=== PATIENT | male | born 1985 | race African-American/Black ===

== ENCOUNTER 2025-01-04 11:39 | Inpatient (IN) | payer OTHER ==
[2025-01-04 12:15] VITALS: BMI 19.8
[2025-01-04] MEDS ORDERED: IBUPROFEN 600 MG TABLET (FP) PO PRN (12:29)
[2025-01-04] MEDS ORDERED: MAGNESIUM HYDROX 2400MG/30ML ORAL SUSPENSION 30 ML CUP PO PRN (12:29)
[2025-01-04] MEDS ORDERED: ONDANSETRON *ODT* 4 MG TABLET SL PRN (12:29)
[2025-01-04] MEDS ORDERED: NICOTINE POLACRILEX 2 MG LOZENGE BC PRN (12:29)
[2025-01-04] MEDS ORDERED: NALOXONE (NARCAN) HCL 4 MG/0.1 ML SPRAY NS PRN (12:29)
[2025-01-04] MEDS ORDERED: NICOTINE POLACRILEX 2 MG GUM BUC PRN (12:29)
[2025-01-04] MEDS ORDERED: POLYETHYLENE GLYCOL (HEALTHYLAX) 3350 17 GM PACKET PO PRN (12:29)
[2025-01-04] MEDS ORDERED: LOPERAMIDE HCL 2 MG CAPSULE PO PRN (12:29)
[2025-01-04] MEDS ORDERED: IBUPROFEN 400 MG TABLET (FP) PO PRN (12:29)
[2025-01-04] MEDS ORDERED: guaiFENesin 600 MG TABLET.ER (FP) PO PRN (12:29)
[2025-01-04] MEDS ORDERED: MAG HYDROX/AL HYDROX/SIMETH 30 ML UNIT-DOSE CUP PO PRN (12:29)
[2025-01-04] MEDS ORDERED: BISMUTH SUBSALICYLATE 262 MG/15 ML BTL PO PRN (12:29)
[2025-01-04] MEDS ORDERED: BENZOCAINE/MENTHOL (CHLORASEPTIC ) LOZENGE MM PRN (12:29)
[2025-01-04] MEDS ORDERED: BENZONATATE 200 MG CAPSULE PO PRN (12:29)
[2025-01-04] MEDS ORDERED: ACETAMINOPHEN 325 MG TABLET (FP) PO PRN (12:29)
[2025-01-04] MEDS ORDERED: DICYCLOMINE HCL 10 MG CAPSULE PO PRN (12:29)
[2025-01-04] MEDS: hydrOXYzine PAMOATE 25 MG CAPSULE (FP) PO PRN (19:30)
[2025-01-04] MEDS: METHOCARBAMOL 500 MG TABLET PO PRN (19:30)
[2025-01-04] MEDS: MELATONIN 5 MG TABLETS PO SCH (22:07)
[2025-01-04] MEDS: THIAMINE 100 MG TABLET PO SCH (22:07)
[2025-01-05] MEDS: methaDONE HCL 10 MG TABLET PO ONE (08:57)
[2025-01-05] MEDS ORDERED: methaDONE HCL 10 MG TABLET PO PRN (10:30)
[2025-01-05] MEDS: cloNIDine HCL 0.1 MG TABLET PO SCH (10:35)
[2025-01-05] MEDS: PRENATAL VITAMINS W/ FOLIC ACID TABLET (FP) PO SCH (10:36)
[2025-01-05 12:27] LABS: HEMATOCRIT 43.6 % (35.4-49); HEMOGLOBIN 14.5 GM/dL (11.7-16.9); MCH 27.9 pg (25.7-33.7); MCHC 33.2 g/dl (32.0-35.9); PLATELET COUNT 275 10^3/uL (134-434); RDW 13.8 % (11.9-15.9); WHITE BLOOD COUNT 6.3 K/mm3 (4.0-10.0)
[2025-01-05 12:29] LABS: POTASSIUM 4.1 mmol/L (3.5-5.1)
[2025-01-05 12:36] LABS: CALCIUM 9.5 mg/dL (8.5-10.1)
[2025-01-05 12:37] LABS: ALBUMIN 3.5 g/dl (3.4-5.0); BLOOD UREA NITROGEN 19.9 mg/dL (7-18)
[2025-01-05 12:40] LABS: CREATININE 0.9 mg/dL (0.55-1.3)
[2025-01-05 12:41] LABS: BILIRUBIN,TOTAL 0.6 mg/dL (0.2-1); TOT PROT 8.3 g/dl (6.4-8.2)
[2025-01-06] MEDS: methaDONE 40 MG, methaDONE 10 MG PO ONE (09:07)
[2025-01-06] MEDS: methaDONE HCL 40 MG DISPERSABLE TABLET PO ONE (12:10)
[2025-01-07] MEDS ORDERED: cloNIDine HCL 0.1 MG TABLET PO PRN
[2025-01-07] MEDS: methaDONE 40 MG, methaDONE 20 MG PO ONE (09:21)
[2025-01-07] MEDS ORDERED: methaDONE 40 MG, methaDONE 20 MG PO ONE (10:00)
[2025-01-07] MEDS ORDERED: methaDONE HCL 40 MG DISPERSABLE TABLET PO ONE ×2 (10:00→11:16)
[2025-01-08] MEDS: methaDONE 40 MG, methaDONE 30 MG PO ONE (09:17)
[2025-01-08] MEDS ORDERED: methaDONE 40 MG, methaDONE 30 MG PO ONE (10:00)
[2025-01-09] MEDS: methaDONE 40 MG, methaDONE 30 MG PO ONE (09:24)
[2025-01-09] MEDS ORDERED: methaDONE HCL 40 MG DISPERSABLE TABLET PO ONE ×2 (10:00)
[2025-01-10 05:41] VITALS: BP 130/84; PULSE 65; RESP 16; TEMP 96.9
[2025-01-10] MEDS ORDERED: methaDONE HCL 40 MG DISPERSABLE TABLET PO ONE (10:00)
[2025-01-10] MEDS ORDERED: methaDONE 80 MG, methaDONE 10 MG PO ONE (10:00)
== END 2025-01-10 08:00 | disposition home or self-care (01) | DRG 773 ==
LOC: YASAS 11:39 → Y6N 13:26
PROVIDERS: ADMIT Allergy & Immunology; ATTEND Family Medicine Addiction Medicine
PROC: HZ2ZZZZ Detoxification Services for Substance Abuse Treatment (ICD-10-PCS; principal; 2025-01-04)
DX: F11.23 Opioid dependence with withdrawal (principal); F13.20 Sedative, hypnotic or anxiolytic dependence, uncomplicated; F14.20 Cocaine dependence, uncomplicated; F12.20 Cannabis dependence, uncomplicated; F17.210 Nicotine dependence, cigarettes, uncomplicated; Z56.0 Unemployment, unspecified; Z59.00 Homelessness unspecified
CPT/HCPCS: 36415; 80053; 80305; 80307; 85027; 86780; 93005; 93010